=== PATIENT | male | born 1985 | race Caucasian/White ===

== ENCOUNTER 2018-05-01 23:52 | Emergency (ER) | payer BC ==
[2018-05-01 23:57] VITALS: BP 123/77; PULSE 68; TEMP 98.3; BMI 58.6
[2018-05-01] MEDS ORDERED: AZITHROMYCIN 250 MG TABLET PO ONE (23:59)
[2018-05-01] MEDS ORDERED: KETOROLAC TROMETHAMINE 60 MG/2 ML VIAL ONE (23:59)
[2018-05-01] MEDS ORDERED: KETOROLAC TROMETHAMINE 60 MG/2 ML VIAL IM ONE (23:59)
--- NOTE | 2018-05-01 23:59 | PDOC ---
History of Present Illness - General Chief Complaint: Ear Problem Stated Complaint: RT EAR PAIN Time Seen by Provider: 05/01/18 23:59 History Source: Patient Exam Limitations: No Limitations - History of Present Illness Initial Comments: 05/02/18 00:10 This is a 33-year-old male who comes in complaining of right ear pain. Patient has had pain since this evening. Patient said it started after he got out of the shower. Patient is complaining of a sharp pain with some ringing in his ear. Patient denies any vertigo, nausea or any other symptoms. Patient denies any recent illness headache or neck pain. Allergies: None Past Medical History: none Social history: Lives with family. No smoking. No alcohol. No illicit drugs. Surgical history: None General: No fevers or chills, no weakness, no weight loss HEENT: No change in vision. No sore throat,.+ Right sided ear pain CardioVascular: no chest discomfort. No shortness of breath Respiratory:No cough, or wheezing. Gastrointestinal: no nausea, vomiting, diarrhea or constipation, No rectal bleeding Genitourinary: No dysuria, hematuria, or frequency Musculoskeletal: No joint or muscle pain or swelling Neurologic: No headache, vertigo, dizziness or loss of consciousness Psychiatric: nor depression Skin: No rashes or easy bruising Endocrine: no increased thirst or abnormal weight change Allergic: no skin or latex allergy All other systems reviewed and normal GENERAL: The patient is awake, alert, and fully oriented, in no acute distress. HEAD: Normal with no signs of trauma. EARS: The right tympanic membrane is dull, injected and inflamed. The left tympanic membrane is normal EYES: Pupils equal, round and reactive to light, extraocular movements intact, sclera anicteric, conjunctiva clear. EXTREMITIES:atraumatic, Normal range of motion, no edema. NEUROLOGICAL: Normal speech, normal gait. PSYCH: Normal mood, normal affect. SKIN: Warm, Dry, normal turgor, no rashes or lesions noted. Assessment plan: This a 33-year-old male who comes in complaining of right- sided ear pain. Patient does have a right otitis media. Patient given Toradol for the pain and the first dose of azithromycin as he is ALLERGIC to penicillins. Patient discharged home will follow-up with his primary care doctor as needed prescription for azithromycin sent to the pharmacy Past History - Past Medical History Allergies/Adverse Reactions: Allergies Allergy/AdvReac Type Severity Reaction Status Date / Time amoxicillin Allergy Verified 05/01/18 23:54 Penicillins Allergy Verified 05/01/18 23:54 Home Medications: Ambulatory Orders Azithromycin 250 mg PO DAILY #4 tablet 05/02/18 Asthma: Yes COPD: No - Suicide/Smoking/Psychosocial Hx Smoking History: Never smoked *Physical Exam - Vital Signs Last Vital Signs Temp Pulse Resp BP Pulse Ox 98.3 F 68 16 123/77 98 05/01/18 23:55 05/01/18 23:55 05/01/18 23:55 05/01/18 23:55 05/01/18 23:55 Moderate Sedation - Procedure Monitoring Vital Signs: Procedure Monitoring Vital Signs Temperature 98.3 F 05/01/18 23:55 Pulse Rate 68 05/01/18 23:55 Respiratory Rate 16 05/01/18 23:55 Blood Pressure 123/77 05/01/18 23:55 O2 Sat by Pulse Oximetry (%) 98 05/01/18 23:55 *DC/Admit/Observation/Transfer Diagnosis at time of Disposition: Right otitis media Qualifiers: Otitis media type: unspecified Qualified Code(s): H66.91 - Otitis media, unspecified, right ear - Discharge Dispostion Disposition: HOME Condition at time of disposition: Stable - Prescriptions Prescriptions: Azithromycin 250 mg PO DAILY #4 tablet - Referrals Referrals: Pérez Osuan [Primary Care Provider] - - Patient Instructions Printed Discharge Instructions: Middle Ear Infection Additional Instructions: For the pain U can take ibuprofen 3 tablets 3 times a day with food don't take on an empty stomach For the infection take azithromycin 1 tablet a day for the next 4 days. We gave your first dose this evening take your next dose tomorrow evening before going to bed. Return to the emergency department immediately with ANY new, persistent or worsening symptoms. Continue any medications as previously prescribed by your physician. You should follow up with your primary doctor as soon as possible regarding today's emergency department visit. . Please make sure your doctor reviews the results of your emergency evaluation. Thank you for coming to the Emergency Department today for your care. It was a pleasure to see you today. Please note that your evaluation is INCOMPLETE until you follow-up with your doctor. - Post Discharge Activity
[2018-05-02] MEDS ORDERED: AZITHROMYCIN 250 MG TABLET ONE
== END 2018-05-02 00:05 | disposition home or self-care (01) ==
LOC: FER 23:52
PROC: 3E0233Z Introduction of Anti-inflammatory into Muscle, Percutaneous Approach (ICD-10-PCS; principal; 2018-05-01)
DX: H66.91 Otitis media, unspecified, right ear (principal)
CPT/HCPCS: 99282-25

== ENCOUNTER 2018-06-17 09:50 | Emergency (ER) | payer BC ==
--- NOTE | 2018-06-17 09:56 | PDOC ---
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 He states he drank approximately three fourths of a bottle of scotch. He seldom drinks alcohol, except occasionally on weekends. No problem with alcoholism for alcohol-related problems in the past, including intoxication, head injury, falls, or withdrawals. During the night, he experienced multiple episodes of retching, and this morning is experiencing epigastric burning. Review of systems: As above. Otherwise, there is been no hematemesis, melena, bloody stool, lower abdominal pain, chest pain, shortness of breath, visual or focal neurologic symptoms, unsteadiness of gait. Remainder systems reviewed and negative Past medical history: Patient is a healthy male, no active medical or surgical problems at present other than "low testosterone" for which he takes replacement Social history: Patient is with 2 small children stable home and family denies being depressed or anxious Family history: Reviewed and noncontributory Physical exam: Alert oriented 3 well-developed well-nourished no acute distress refill and cooperative Afebrile, vital signs normal Head atraumatic. No sign of head injury. No pallor or icterus. PERRLA 4 mm, fundi benign, ENT clear Neck supple without bruit mass or nodes. No point tenderness or deformity of the cervical spine, full range of motion without pain Chest clear to P&A, full breath sounds bilaterally, no rib cage or chest wall deformity deformity or point tenderness CV regular without murmur rub or gallop. No tachycardia Abdomen nondistended. Bowel sounds normal. Soft without mass or organomegaly. Mild tenderness in the epigastrium to deep palpation, without guarding or rebound. No CVAT. Spine/pelvis without deformity or tenderness Extremities without trauma Neurological C2 to 12 intact. Strength full and symmetric. No focal sensory or motor deficits. Gait stable and unimpaired Impression: Alcohol-related gastritis, post intoxication syndrome, neurologically stable. No risk factors for withdrawal. Plan: IV hydration, antiemetics, proton pump inhibitor, observe and further treatment depending on response to therapy. Past History - Past Medical History Allergies/Adverse Reactions: Allergies Allergy/AdvReac Type Severity Reaction Status Date / Time amoxicillin Allergy Verified 05/01/18 23:54 azithromycin Allergy Verified 06/17/18 09:52 Penicillins Allergy Verified 05/01/18 23:54 Home Medications: Ambulatory Orders NK [No Known Home Medication] 06/17/18 Asthma: Yes COPD: No - Suicide/Smoking/Psychosocial Hx Smoking History: Never smoked ED Treatment Course - LABORATORY CBC & Chemistry Diagram: 06/17/18 10:00 06/17/18 10:00 Medical Decision Making - Medical Decision Making 06/17/18 13:09 H&H 16.7 and 50.3 BUNs 24. CBC and chemistries otherwise without significant abnormalities. Alcohol level was 4.9 Patient with significant dehydration, treated with 2 L of normal saline, Protonix, and Zofran. Feels much better. No persistent nausea or vomiting. Continue oral rehydration at home and follow-up if symptoms worsen. Fully ambulatory and in no pain or other distress at discharge to follow-up as directed *DC/Admit/Observation/Transfer Diagnosis at time of Disposition: Dehydration - Discharge Dispostion Disposition: HOME Condition at time of disposition: Improved Decision to Admit order: No - Referrals - Patient Instructions Printed Discharge Instructions: DI for Dehydration -- Adult, DI for Alcohol Poisoning - Post Discharge Activity Forms/Work/School Notes: Back to Work
[2018-06-17] MEDS ORDERED: SODIUM CHLORIDE 1,000 ML IV STA ×2 (09:57→11:30)
[2018-06-17] MEDS ORDERED: PANTOPRAZOLE SODIUM 40 MG in SODIUM CHLORIDE 100 ML IVPB ONE (09:57)
[2018-06-17] MEDS ORDERED: ONDANSETRON 4 MG/2 ML VIAL IVPB ONE (09:57)
[2018-06-17 10:00] VITALS: BP 134/79; PULSE 97; TEMP 98; BMI 27.4
[2018-06-17] MEDS ORDERED: ONDANSETRON 4 MG/2 ML VIAL ONE (10:07)
[2018-06-17] MEDS ORDERED: PANTOPRAZOLE SODIUM 40 MG VIAL ONE (10:07)
[2018-06-17 10:39] LABS: ALBUMIN 5.1 g/dl (3.4-5.0); ALK PHOS 49 U/L (45-117); ANION GAP 13 MMOL/L (8-16); BLOOD UREA NITROGEN 24 mg/dl (7-18); CALCIUM 9.7 mg/dl (8.5-10); CHLORIDE 99 mmol/L (98-107); CO2 27 mmol/L (21-32); GLUCOSE,RANDOM 107 mg/dl (74-106); POTASSIUM 4.3 mmol/L (3.5-5.1); SGOT/AST 40 U/L (15-37); SGPT/ALT 59 U/L (13-61); SODIUM 139 mmol/L (136-145); TOT PROT 7.9 g/dl (6.4-8.2)
[2018-06-17 10:48] LABS: HEMATOCRIT 50.3 % (35.4-49); HEMOGLOBIN 16.7 GM/dl (11.7-16.9); MCH 30.7 pg (25.7-33.7); MCHC 33.2 g/dl (32.0-35.9); MEAN CELL VOLUME 92.2 fl (80-96); MEAN PLT VOLUME 7.7 fl (7.5-11.1); PLATELET COUNT 297 K/MM3 (134-434); RBC 5.45 M/mm3 (4.00-5.60); RDW 14.2 % (11.9-15.9); WHITE BLOOD COUNT 10.7 K/mm3 (4.0-10.8)
[2018-06-17 12:14] LABS: ANISOCYTOSIS 1+
[2018-06-17 12:15] LABS: TARGET CELLS 2+
[2018-06-17 12:16] LABS: PLATELET ESTIMATE ADEQUATE
== END 2018-06-17 13:40 | disposition home or self-care (01) ==
LOC: FER 09:50
PROC: 3E033GC Introduction of Other Therapeutic Substance into Peripheral Vein, Percutaneous Approach (ICD-10-PCS; principal; 2018-06-17)
PROC: 3E0337Z Introduction of Electrolytic and Water Balance Substance into Peripheral Vein, Percutaneous Approach (ICD-10-PCS; 2018-06-17)
DX: E86.0 Dehydration (principal); J45.909 Unspecified asthma, uncomplicated
CPT/HCPCS: 36415; 80053; 80307; 83690; 85025; 99282-25; J7030

== ENCOUNTER 2020-03-28 16:52 | Emergency (ER) | payer BC | END 2020-03-28 17:59 | disposition home or self-care (01) | LOC: JVIRT 16:52 | DX: Z03.818 Encounter for observation for suspected exposure to other biological agents ruled out (principal) | CPT/HCPCS: Q3014-GT ==

== ENCOUNTER 2020-06-15 10:51 | Emergency (ER) | payer BC | END 2020-06-15 11:18 | disposition home or self-care (01) | LOC: JVIRT 10:51 | DX: Z20.822 Contact with and (suspected) exposure to COVID-19 (principal) | CPT/HCPCS: C9803; Q3014-GT; U0003 ==